=== PATIENT | female | born 1995 | race Caucasian/White ===

== ENCOUNTER 2016-08-03 16:08 | Emergency (ER) | payer OTHER ==
[2016-08-03 16:15] VITALS: BMI 56.3
--- NOTE | 2016-08-03 19:19 | DR.GENAD ---
HPI - PCP Primary Care Physician: NFD - Complaint/Symptoms Chief Complaint Doctors Comments: Patient complains of her heart skipping for the past two weeks. States she noticed it getting worst after taking Lisinopril daily. States she is staking Lisinopril and Amlodipine for her blood pressure and she is taking them regularily now whereas before she would barely take the medicines. States she is taking metformin for her glucose She had a problem with her thyroid when she was [age] years old but has not had it checked since. She drinks 2-3 large cups of tea daily and coffee rarely. States she has a strong family history of heart disease. States heart skips worse when she lay down and 2-3 hours after she gets up. She denies chest pain but states she has chest pain when she hurts. Chief Complaint:: PATIENT STATED HER HEART HAS BEEN SKIPPING A BEAT FOR 2 WEEKS , SHE STATED SHE THOUGHT IT WAS HER BP MEDS BUT TODAY IT HAS BEEN WORSE. - Nurses notes reviewed Nurses Notes Review: Yes - Source History Provided: Patient - Mode of Arrival Mode of Arrival: Ambulatory - Timing Onset of Chief Complaint: 07/26/16 Came on: Gradually - Duration Duration: Intermittent How lon Duration: Weeks - Location Location: xiphoid chest - Severity Severity: Mild - Modifying Factors Worsens:: laying down Improves:: nothing PMH - PMH Past Medical History: Yes Past Medical History: Diabetes, Hypertension Past Surgical History: Yes Surgical History: Cholecystectomy, Tonsillectomy - Family History History of Family Medical Conditions: No - Social History Does patient currently use any type of tobacco product: No Have you used tobacco products in the last 12 months: No Type of Tobacco Use: None Does any household member use tobacco: Yes Alcohol Use: None Do you use any recreational Drugs:: No Lives With: Family Lives Where: Home - infectious screening In the last 2 months have you had wt loss of >10#?: NO Have you had fever, night sweats or hemotysis?: No Have you traveled outside the country in the last 6 months?: No Isolation: Standard ROS - Review of Systems Constitutional: No Symptoms Reported, See HPI. negative: Chills, Diaphoresis, Fever, Malaise, Weakness, Irritable, Fatigue, Loss of Appetite, Other Eyes: No Symptoms Reported ENTM: No Symptoms Reported, Nose Discharge, Nose Congestion. negative: See HPI , Ear Pain, Ear Discharge, Pulling on Ears, Hearing Loss, Nose Pain, Epistaxis, Mouth Pain, Mouth Swelling, Loose Teeth, Drooling, Throat Pain, Throat Swelling , Ear Foreign Body Respiratoy: No Symptoms Reported, See HPI, Short of Breath. negative: Productive Cough, Non-Productive Cough, Moist Cough, Dry Cough, Hacking Cough, Barking Cough, Brassy Cough, Orthopnea, Stridor, Wheezing, Hemoptysis, Other Cardiovascular: No Symptoms Reported, Edema Gastrointestinal/Abdominal: No Symptoms Reported. negative: See HPI, Abdominal Pain, Constipation, Diarrhea, Nausea, Vomiting, Food Intolerance, Other Genitourinary: No Symptoms Reported Neurological: No Symptoms Reported Musculoskeletal: No Symptoms Reported Integumentary: No Symptoms Reported. negative: See HPI, Change in Color, Change in Hair/Nails, Dryness, Lesions, Lumps, Rash, Itching, Wound, Bruises, Juandice, Other Hematologic/Lymphatic: No Symptoms Reported Endocrine: No Symptoms Reported Psychiatric: No Symptoms Reported PE - Vital Signs Vitals: Temperature 98.6 F Pulse Rate [Left] 90 Pulse Rate 100 Respiratory Rate 16 Blood Pressure [Left Arm] 148/98 O2 Sat by Pulse Oximetry 98 - General Limitations: No Limitations General Appearance: Alert, In No Apparent Distress - Head Head Exam: Normal Inspection, Atraumatic, Normocephalic - Eyes Eye exam: Normal Appearance, PERRL, EOMI. negative: Scleral Icterus, Conjunctival Injection, Nystagmus, Miosis, Mydrasis, Periorbital Swelling, Periorbital Tenderness, Other - ENT ENT Exam: Normal Exam, Normal Oropharynx, Normal External Ear Exam, Mucous Membranes Moist, TM's Normal Bilaterally External Ear Exam: Normal External Inspection TM/Canal Exam: Bilateral Normal Nose Exam: Normal Nose Exam, Sinus Tenderness, Nasal Deviation Mouth Exam: Normal Inspection Throat Exam: Normal Inspection, Tonsillar Erythema - Neck Neck Exam: Normal Inspection, Full ROM, Trachea Midline. negative: Tenderness, Meningismus, Lymphadenopathy, Thyromegaly, Other - Chest Chest Inspection: Normal Inspection, Symmetric Chest Wall Rise - Respiratory Respiratory Exam: Normal Lung Sounds Bilat Respiratory Exam: Bilateral Clear to Auscultation - Cardiovascular Cardiovascular Exam: Regular Rate, Normal Rhythm, Normal Heart Sounds - Abdominal Exam Abdominal Exam: Normal Inspection, Normal Bowel Sounds, Soft Abdominal Tenderness: negative: RUQ, RLQ, LUQ, LLQ, Epigastrium, Suprapubic, Diffuse, Mild, Moderate, Severe, Other - Extremities Extremities Exam: Normal Inspection, Full ROM, Normal Capillary Refill. negative: Tenderness, Edema, Joint Swelling, Calf Tenderness, Other - Back Back Exam: Normal Inspection, Full ROM. negative: Tenderness, (R) CVA Tenderness, (L) CVA Tenderness, Muscle Spasm, Paraspinal Tenderness, Vertebral Tenderness, Rashes, (R) Sciatic Notch Tenderness, (L) Sciatic Notch Tendern, (R ) Straight Leg Raise, (L) Straight Leg Raise, Other - Neurologic Neurological Exam: Alert, Oriented X3, CN II-XII Intact, Normal Gait - Psychiatric Psychiatric Exam: Normal Affect, Normal Mood. negative: Depressed, Agitated, Anxious, Flat Affect, Manic, Homicidal Ideation, Suicidal Ideation, Other - Skin Skin Exam: Warm, Dry, Intact ROR - Labs Reviewed Laboratory Results Reviewed?: Yes (All labs and x-ray results reviewed and discussed with patient.) Result Diagrams: 08/03/16 19:30 08/03/16 19: Laboratory: WBC 12.7 X10^3/uL (3.6-10.0) H 08/03/16 19:30 RBC 4.93 X10^6/uL (3.5-5.4) 08/03/16 19:30 Hgb 12.5 g/dL (12.0-16.0) 08/03/16 19:30 Hct 37.7 % (36.0-47.0) 08/03/16 19:30 MCV 76.4 fL (80.0-100.0) L 08/03/16 19:30 MCH 25.3 pg (27.0-34.0) L 08/03/16 19:30 MCHC 33.1 g/dL (33.0-35.0) 08/03/16 19:30 RDW 13.8 % (11.6-16.5) 08/03/16 19: Plt Count 338 X10^3/uL (150.0-450.0) 08/03/16 19:30 Plt Count Comment Adequate (ADEQUATE) 08/03/16 19: MPV 8.4 fL (7.4-11.0) 08/03/16 19:30 Neut % 63.1 % (42.0-75.0) 08/03/16 19:30 Lymph % 29.6 % (21.0-51.0) 08/03/16 19:30 Carbon % 5.6 % (0.0-13.0) 08/03/16 19:30 Eos % 1.2 % (0.9-2.9) 08/03/16 19:30 Baso % 0.5 % (0.2-1.0) 08/03/16 19:30 Neut # 8.0 x10^3/uL (2.2-4.8) H 08/03/16 19:30 Lymph # 3.8 X10^3/uL (1.3-2.9) H 08/03/16 19:30 Carbon # 0.7 x10^3/uL (0.3-0.8) 08/03/16 19:30 Eos # 0.1 x10^3/uL (0.0-0.2) 08/03/16 19:30 Baso # 0.1 X10^3/uL (0.0-0.1) 08/03/16 19:30 Absolute Nucleated RBC 0.0 /100WBC 08/03/16 19:30 Plt Morphology Comment Normal (NORMAL) 08/03/16 19:30 RBC Morphology Abnormal (NORMAL) A 08/03/16 19:30 Hypochromasia Slight A 08/03/16 19:30 Anisocytosis Slight A 08/03/16 19:30 Microcytosis Slight A 08/03/16 19:30 PTT 29.7 SECONDS (22.9-36.5) 08/03/16 19:30 PTT Comment - 08/03/16 19:30 D-Dimer < 100 ng/mL (0-400) 08/03/16 19:30 Sodium 142 mmol/L (136-145) 08/03/16 19:30 Corrected Sodium TNP 08/03/16 19:30 Potassium 3.6 mmol/L (3.5-5.1) 08/03/16 19:30 Chloride 106 mmol/L (98-107) 08/03/16 19:30 Carbon Dioxide 25.4 mmol/L (21-32) 08/03/16 19:30 BUN 10 mg/dL (7-18) 08/03/16 19:30 Creatinine 0.67 mg/dL (0.55-1.02) 08/03/16 19:30 Est GFR (MDRD) Af Amer > 60 (>60) 08/03/16 19:30 Est GFR (MDRD) Non-Af > 60 (>60) 08/03/16 19:30 Glucose 97 mg/dL (65-99) 08/03/16 19:30 Calcium 8.8 mg/dL (8.5-10.1) 08/03/16 19:30 Corrected Calcium TNP 08/03/16 19:30 Magnesium 1.9 mg/dL (1.7-2.9) 08/03/16 19:30 Total Bilirubin 0.50 mg/dL (0.2-1.0) 08/03/16 19:30 AST 25 Units/L (15-37) 08/03/16 19:30 ALT 43 Units/L (12-78) 08/03/16 19:30 Alkaline Phosphatase 95 Units/L (46-116) 08/03/16 19:30 Creatine Kinase 113 Units/L (26-192) 08/03/16 21:55 CK-MB (CK-2) 3.6 ng/mL (0-4.0) 08/03/16 21:55 CK/CKMB % Calc 3.2 % (<4) 08/03/16 21:55 Troponin I < 0.02 ng/mL (0-1.5) 08/03/16 21:55 Total Protein 7.7 g/dL (6.4-8.2) 08/03/16 19:30 Albumin 3.4 g/dL (3.4-5.0) 08/03/16 19:30 Globulin 4.3 g/dL (2.5-4.5) 08/03/16 19:30 Albumin/Globulin Ratio 0.8 Ratio (1.1-2.1) L 08/03/16 19:30 TSH 3rd Generation 0.846 uIU/mL (0.358-3.74) 08/03/16 19:30 - XRAY XRAY Interpreted by: Radiologist (CXR: No acute cardiopulmonary abnormality) - EKG Rate: 80 [place]: Normal Rhythm: NSR Block: None Hypertrophy: None ST: Nonsp (low voltage) - Diagnosis Discharge Problem: Heart palpitations, Essential hypertension, Anxiety neurosis Morbid obesity Qualifiers: Obesity type: due to excess calories Qualified Code(s): E66.01 - Morbid (severe ) obesity due to excess calories - Discharge Plan Disposition: HOME, SELF-CARE Condition: Stable - Follow ups/Referrals Follow ups/Referrals: NFD,None [Primary Care Provider] - 3 days OCTAVIA HINOJOSA [STAFF PHYSICIAN] - 3 days - Instructions Instructions: Palpitations, Panic Attacks, [id number], Hypertension
[2016-08-03 19:58] LABS: BASOPHILS # (AUTO) 0.1 X10^3/uL (0.0-0.1); BASOPHILS % (AUTO) 0.5 % (0.2-1.0); EOSINOPHILS # (AUTO) 0.1 x10^3/uL (0.0-0.2); EOSINOPHILS % (AUTO) 1.2 % (0.9-2.9); HEMATOCRIT 37.7 % (36.0-47.0); HEMOGLOBIN 12.5 g/dL (12.0-16.0); LYMPHOCYTES # (AUTO) 3.8 X10^3/uL (1.3-2.9); LYMPHOCYTES % (AUTO) 29.6 % (21.0-51.0); MEAN CORPUSCULAR HEMOGLOBIN 25.3 pg (27.0-34.0); MEAN CORPUSCULAR HGB CONC 33.1 g/dL (33.0-35.0); MEAN CORPUSCULAR VOLUME 76.4 fL (80.0-100.0); MEAN PLATELET VOLUME 8.4 fL (7.4-11.0); MONOCYTES # (AUTO) 0.7 x10^3/uL (0.3-0.8); MONOCYTES % (AUTO) 5.6 % (0.0-13.0); NEUTROPHILS % (AUTO) 63.1 % (42.0-75.0); PLATELET COUNT 338 X10^3/uL (150.0-450.0); RED BLOOD COUNT 4.93 X10^6/uL (3.5-5.4); RED CELL DISTRIBUTION WIDTH 13.8 % (11.6-16.5); WHITE BLOOD COUNT 12.7 X10^3/uL (3.6-10.0)
[2016-08-03 20:11] LABS: ANISOCYTOSIS SLIGHT; HYPOCHROMASIA SLIGHT; MICROCYTOSIS SLIGHT; PLATELET MORPHOLOGY COMMENT NORMAL (NORMAL)
[2016-08-03 20:31] LABS: D DIMER < 100 ng/mL (0-400)
[2016-08-03 20:40] LABS: BLOOD UREA NITROGEN 10 mg/dL (7-18); CALCIUM 8.8 mg/dL (8.5-10.1); CARBON DIOXIDE 25.4 mmol/L (21-32); CHLORIDE 106 mmol/L (98-107); CREATININE 0.67 mg/dL (0.55-1.02); GLUCOSE 97 mg/dL (65-99); SODIUM 142 mmol/L (136-145); TROPONIN I < 0.02 ng/mL (0-1.5); eGFR BLACK RACES > 60 (>60); eGFR NON BLACK RACES > 60 (>60)
[2016-08-03 21:02] LABS: ALANINE AMINOTRANSFERASE 43 Units/L (12-78); ALBUMIN 3.4 g/dL (3.4-5.0); ALKALINE PHOSPHATASE 95 Units/L (46-116); ASPARTATE AMINO TRANSFERASE 25 Units/L (15-37); CREATINE KINASE 121 Units/L (26-192); MAGNESIUM 1.9 mg/dL (1.7-2.9); TOTAL PROTEIN 7.7 g/dL (6.4-8.2); TSH (3RD GENERATION) 0.846 uIU/mL (0.358-3.74)
[2016-08-03 21:06] LABS: CKMB % 3.6 % (<4); CREATINE KINASE MB 4.4 ng/mL (0-4.0)
--- NOTE | 2016-08-03 21:15 | RAD ---
AP Chest Indication: Chest pain Comparison: None available Findings: The trachea is midline. The cardiac silhouette is unremarkable. The lungs are clear without focal infiltrate or effusion. The bony thorax is unremarkable. IMPRESSION: 1. No acute cardiopulmonary abnormality. Reported By:
[2016-08-03 22:21] VITALS: BP 148/98
[2016-08-03 22:42] LABS: CKMB % 3.2 % (<4); CREATINE KINASE 113 Units/L (26-192); CREATINE KINASE MB 3.6 ng/mL (0-4.0); TROPONIN I < 0.02 ng/mL (0-1.5)
== END 2016-08-03 23:00 | disposition home or self-care (01) ==
LOC: ER 16:23
DX: R00.2 Palpitations (principal); E66.01 Morbid (severe) obesity due to excess calories; I10 Essential (primary) hypertension; F41.1 Generalized anxiety disorder
CPT/HCPCS: 36415; 71010; 80053; 82550; 82553; 83735; 84443; 84484; 85025; 85378; 85730; 93005; 93010; 99283

== ENCOUNTER 2017-01-15 17:01 | Emergency (ER) | payer OTHER ==
[2017-01-15 17:09] VITALS: BP 193/94; BMI 56.3
--- NOTE | 2017-01-15 18:31 | DR.GENAD ---
HPI - HPI Comment HPI Comment: SINUS AND CHEST COMGESTION. FEVER ON AND OFF. WORSE TODAY. - Complaint/Symptoms Chief Complaint Doctors Comments: COUGH, COLD CONGESTION TIMES 7 DAYS Chief Complaint:: "CONSTANT COUGH AND SINUS DRAINAGE" Self Treatment fo Chief Complaint: OTC DAY/NIGHT TIME MEDS. - Nurses notes reviewed Nurses Notes Review: Yes - Source History Provided: Patient - Mode of Arrival Mode of Arrival: Ambulatory - Timing Onset of Chief Complaint: 01/08/17 Came on: Suddenly - Duration Duration: Constant Duration: Days - Severity Severity: Moderate PMH - PMH Past Medical History: Yes Past Medical History: Hypertension Past Medical History Comment: PCOS, FORM OF SPINA BIFIDA Past Surgical History: Yes Surgical History: Cholecystectomy, Tonsillectomy - Family History History of Family Medical Conditions: Yes Family Medical History: Diabetes Mellitus, Heart Failure, Hypertension - Social History Does any household member use tobacco: Yes Alcohol Use: Rarely Do you use any recreational Drugs:: No Lives With: Significant Other Lives Where: Home - infectious screening In the last 2 months have you had wt loss of >10#?: NO Have you had fever, night sweats or hemotysis?: No Have you traveled outside the country in the last 6 months?: No Isolation: Standard ROS - Review of Systems Constitutional: Weakness, Fatigue, Loss of Appetite Eyes: No Symptoms Reported. negative: Eye Pain, Discharge ENTM: Nose Discharge, Nose Congestion, Throat Pain. negative: Ear Pain Respiratoy: Productive Cough, Short of Breath, Wheezing Cardiovascular: Chest Pain Gastrointestinal/Abdominal: Nausea Genitourinary: No Symptoms Reported. negative: Dysuria, Frequency, Hematuria Neurological: Headache, Weakness, Dizziness Musculoskeletal: Muscle Pain Integumentary: No Symptoms Reported Hematologic/Lymphatic: No Symptoms Reported Endocrine: No Symptoms Reported All Other Systems: Reviewed and Negative PE - Vital Signs Vitals: Temperature 98.3 F Pulse Rate 104 Respiratory Rate 20 Blood Pressure [Left Arm] 148/98 Blood Pressure 193/94 O2 Sat by Pulse Oximetry 99 - General Limitations: No Limitations General Appearance: Alert - Head Head Exam: Normal Inspection - Eyes Eye exam: Normal Appearance - ENT ENT Exam: Normal External Ear Exam External Ear Exam: Normal External Inspection TM/Canal Exam: Bilateral Bulging Nose Exam: Normal Nose Exam Mouth Exam: Normal Inspection Throat Exam: Tonsillar Erythema - Neck Neck Exam: Trachea Midline - Chest Chest Inspection: Symmetric Chest Wall Rise - Respiratory Respiratory Exam: Normal Lung Sounds Bilat Respiratory Exam: Bilateral Rhonchi, Lower Rhonchi - Cardiovascular Cardiovascular Exam: Regular Rate, Normal Rhythm, Normal Heart Sounds - Abdominal Exam Abdominal Exam: Normal Bowel Sounds, Soft. negative: Tenderness - Extremities Extremities Exam: Normal Inspection - Back Back Exam: Normal Inspection - Neurologic Neurological Exam: Alert, Oriented X3 - Psychiatric Psychiatric Exam: Normal Affect, Normal Mood - Skin Skin Exam: Normal Color MDM - Differential Diagnosis Differential Diagnosis: ACUTE BRONCHITIS, ACUTE SINUSITIS Course - Treatment Treatment: SEE ORDERS. - Education/Counseling Education/Counseling: Patient, Education Educated On: Treatment, Diagnosis, Needs for Follow Up ROR - XRAY XRAY Interpreted by: Radiologist XRAY Findings: REPORT DISCUSS WITH PATIENT. - Diagnosis Discharge Problem: Acute bronchitis Qualifiers: Bronchitis organism: other organism Qualified Code(s): J20.8 - Acute bronchitis due to other specified organisms Acute sinusitis Qualifiers: Sinusitis location: unspecified location Recurrence: not specified as recurrent Qualified Code(s): J01.90 - Acute sinusitis, unspecified - Discharge Plan Disposition: 01 HOME, SELF-CARE Condition: Stable Prescriptions: Doxycycline Hyclate 100 mg PO BID #20 tablet. Promethazine W/Codeine [PHENERGAN W/CODEINE 6.25mg/10mg (5mL) *] 10 ml PO Q6H PRN #120 ml PRN Reason: Cough - Follow ups/Referrals Follow ups/Referrals: NFD,None [Primary Care Provider] - 3 days - Instructions Instructions: Sinusitis, Adult, [id number], Acute Bronchitis, [id number] Additional Instructions: RETURN TO ED IF WORSE.
--- NOTE | 2017-01-15 19:50 | RAD ---
Chest AP portable Indication: Cough. Comparison: August 03, 2016. Findings: There is no pneumothorax, effusion or consolidation. Heart size is normal. Impression: No acute chest process. Reported By:
[2017-01-15] MEDS ORDERED: MOTRIN TAB 400 MG PO ONE (20:12)
[2017-01-15] MEDS ORDERED: AMOXIL CAP 500 MG PO ONE (20:22)
[2017-01-15] MEDS ORDERED: PHENERGAN W/CODEINE 6.25MG/10MG PO ONE (20:22)
[2017-01-15] MEDS ORDERED: PHENERGAN W/CODEINE 6.25MG/10MG ONE (20:24)
[2017-01-15] MEDS ORDERED: VIBRAMYCIN PO ONE ×2 (20:24)
== END 2017-01-15 20:36 | disposition home or self-care (01) ==
LOC: ER 17:18
DX: J01.80 Other acute sinusitis (principal); J02.8 Acute pharyngitis due to other specified organisms
CPT/HCPCS: 71010; 99282